=== PATIENT | female | born 1945 | race Asian ===

== ENCOUNTER 2021-08-04 06:31 | Emergency (ER) | payer MEDICARE, OTHER ==
[2021-08-04] MEDS ORDERED: Aspirin 81 MG Tab.Chew PO ONE (06:55)
[2021-08-04] MEDS: Sodium Chloride 0.9% 10 ML Syringe FLUSH PRN ×2 (07:10→08:57)
[2021-08-04] MEDS ORDERED: Iopamidol 755 Mg/ML 100 ML Bottle IVPUSH ONE (08:29)
[2021-08-04] MEDS ORDERED: Sodium Chloride 0.9% 10 ML Syringe FLUSH ONE (08:29)
[2021-08-04] MEDS ORDERED: Sodium Chloride 0.9% 100 ML IV SCH (08:30)
[2021-08-04 10:15] VITALS: BP 151/92; PULSE 64
== END 2021-08-04 10:15 | disposition home or self-care (01) ==
LOC: JD.ED 06:31
DX: R07.89 Other chest pain (principal); E87.6 Hypokalemia; J44.9 Chronic obstructive pulmonary disease, unspecified
CPT/HCPCS: 36415; 71045; 71275; 80053; 84484; 85025; 85379; 93005; 99285; A9270; J3490; Q9967; 93010; 99284

== ENCOUNTER 2021-09-13 07:52 | Inpatient (IN) | payer MEDICARE, OTHER ==
[2021-09-13] MEDS ORDERED: Sodium Chloride 0.9% 1,000 ML IV STA (08:21)
[2021-09-13] MEDS ORDERED: Ondansetron 4 MG/2 ML SDV IVPUSH ONE ×2 (08:21→12:52)
[2021-09-13] MEDS ORDERED: HYDROmorphone 0.5 MG/0.5 ML Syringe IVPUSH ONE ×5 (08:22→14:26)
[2021-09-13] MEDS: Sodium Chloride 0.9% 10 ML Syringe FLUSH PRN ×2 (08:38→10:08)
[2021-09-13 09:06] LABS: ESTIMATED GFR > 60 mL/min (>60)
[2021-09-13] MEDS ORDERED: Iopamidol 612 MG/ML 100 ML Bottle IVPUSH ONE (09:48)
[2021-09-13] MEDS ORDERED: Metoclopramide 10 MG/2 ML SDV IVPUSH ONE (10:26)
[2021-09-13] MEDS ORDERED: Ondansetron 4 MG/2 ML SDV IVPUSH PRN (16:46)
[2021-09-13] MEDS ORDERED: Formoterol/Mometasone 200-5 MCG 8.8 GM Inhaler IH PRN (16:48)
[2021-09-13] MEDS ORDERED: Pantoprazole 40 MG Vial ONE (16:49)
[2021-09-13] MEDS ORDERED: Ondansetron 4 MG/2 ML SDV IV PRN (16:49)
[2021-09-13] MEDS ORDERED: LORazepam 2 MG/ML SDV IV PRN (16:49)
[2021-09-13] MEDS ORDERED: OLOPATADINE HCL EYEBOTH SCH (17:00)
[2021-09-13] MEDS: HYDROmorphone 0.5 MG/0.5 ML Syringe IVPUSH PRN ×3 (17:05→22:27)
[2021-09-13] MEDS ORDERED: Albuterol 6.7 GM Inhaler INH PRN (17:13)
[2021-09-13] MEDS ORDERED: Pantoprazole 40 MG Vial IVPUSH ONE (17:15)
[2021-09-13] MEDS: Potassium Chloride 10 MEQ in Premix Bag 1 BAG IV SCH ×4 (17:43→22:31)
[2021-09-13] MEDS ORDERED: Sodium Chloride 0.9% 1,000 ML IV SCH (18:00)
[2021-09-13] MEDS ORDERED: Sodium Chloride 0.9% 1,000 ML ONE (18:00)
[2021-09-13] MEDS ORDERED: Albuterol/Ipratropium 3.0-0.5 MG/3 ML Neb Soln NEB PRN (18:37)
[2021-09-14] MEDS: Dextrose 5%-0.45% NaCl 1,000 ML IV SCH ×3 (00:03→16:40)
[2021-09-14] MEDS: HYDROmorphone 0.5 MG/0.5 ML Syringe IVPUSH PRN ×4 (01:12→17:50)
[2021-09-14 06:41] LABS: ESTIMATED GFR > 60 mL/min (>60)
[2021-09-14] MEDS: Enoxaparin 40 MG/0.4 ML Syringe SUBCUT SCH (08:34)
[2021-09-14] MEDS ORDERED: Acetaminophen 325 MG Tab PO PRN (14:31)
[2021-09-15] MEDS: Dextrose 5%-0.45% NaCl 1,000 ML IV SCH ×3 (01:03→17:36)
[2021-09-15 07:02] LABS: ESTIMATED GFR > 60 mL/min (>60)
[2021-09-15] MEDS: Enoxaparin 40 MG/0.4 ML Syringe SUBCUT SCH (08:13)
[2021-09-15] MEDS: Potassium Chloride 10 MEQ in Premix Bag 1 BAG IV SCH ×4 (13:39→19:24)
[2021-09-16] MEDS: Dextrose 5%-0.45% NaCl 1,000 ML IV SCH (01:50)
[2021-09-16 07:27] LABS: ESTIMATED GFR > 60 mL/min (>60)
[2021-09-16] MEDS: Potassium Chloride 10 MEQ in Premix Bag 1 BAG IV SCH ×4 (09:32→14:02)
[2021-09-16] MEDS: Enoxaparin 40 MG/0.4 ML Syringe SUBCUT SCH (09:34)
[2021-09-16] MEDS ORDERED: Sodium Chloride 0.9% 250 ML IV SCH (12:30)
[2021-09-16 16:07] VITALS: BP 128/88; PULSE 72
== END 2021-09-16 15:39 | disposition home or self-care (01) | DRG 389 ==
LOC: JD.ED 07:52 → JD.MS 14:40
PROVIDERS: ADMIT Pediatrics; ATTEND Pediatrics
DX: K56.609 Unspecified intestinal obstruction, unspecified as to partial versus complete obstruction (principal); R18.8 Other ascites; J44.9 Chronic obstructive pulmonary disease, unspecified; K76.0 Fatty (change of) liver, not elsewhere classified; K21.9 Gastro-esophageal reflux disease without esophagitis; E87.6 Hypokalemia; Z20.822 Contact with and (suspected) exposure to COVID-19; Z79.899 Other long term (current) drug therapy; Z87.19 Personal history of other diseases of the digestive system; Z90.49 Acquired absence of other specified parts of digestive tract; Z98.42 Cataract extraction status, left eye; Z98.41 Cataract extraction status, right eye; Z90.710 Acquired absence of both cervix and uterus; Z86.16 Personal history of COVID-19; Z87.891 Personal history of nicotine dependence
CPT/HCPCS: 36415; 71045; 74177; 80053; 81003; 83690; 85025; 86140; 96361; 96374; 96375; 96376; 99285; J1170 ×4; J2405 ×2; J2765; J3490 ×2; J7030; Q9967; U0002; 74018; 74018-26; 74019; 74019-26; 83735; 94761; 97161-GP; A9270-GY; C9113; J1650; J3480; J7042; J7050

== ENCOUNTER 2022-03-03 08:33 | Emergency (ER) | payer MEDICARE, OTHER ==
[2022-03-03] MEDS ORDERED: Sodium Chloride 0.9% 10 ML Syringe FLUSH PRN (09:28)
[2022-03-03] MEDS ORDERED: Ondansetron 4 MG/2 ML SDV IVPUSH ONE (09:28)
[2022-03-03 10:03] LABS: ESTIMATED GFR 98 mL/min (>60)
[2022-03-03] MEDS ORDERED: Acetaminophen 325 MG Tab PO ONE (11:43)
[2022-03-03 12:31] VITALS: BP 115/65; PULSE 74
== END 2022-03-03 12:30 | disposition home or self-care (01) ==
LOC: JD.ED 08:33
DX: R42 Dizziness and giddiness (principal); R11.2 Nausea with vomiting, unspecified; J44.9 Chronic obstructive pulmonary disease, unspecified; Z87.891 Personal history of nicotine dependence; Z79.899 Other long term (current) drug therapy
CPT/HCPCS: 36415; 70450; 80053; 80179; 83735; 84484; 85025; 86140; 93005; 96374; 99284; A9270; J2405; J3490

== ENCOUNTER 2022-07-13 06:57 | Day surgery (SDC) | payer MEDICARE, OTHER ==
[~2022-07-13 06:57] MED LIST: Lactated Ringers 1,000 ML IV SCH; Lidocaine 1%/Sod Bicarbonate in NS 8.4% 1 ML Syringe IDERM PRN; Morphine 8 MG, EPINEPHrine 0.3 MG, Cefuroxime 750 MG, Ketorolac 30 MG, Sodium Chloride ... PRN; Sodium Chloride 0.9% 10 ML Syringe FLUSH PRN; Sodium Chloride 0.9% 10 ML Syringe FLUSH SCH
[2022-07-13] MEDS ORDERED: Vancomycin 1 GM SDV ONE (07:08)
[2022-07-13] MEDS ORDERED: Tranexamic Acid 1,000 MG/10 ML Vial ONE (07:08)
[2022-07-13] MEDS ORDERED: Midazolam 1 MG/ML 2 ML SDV ONE (07:24)
[2022-07-13] MEDS ORDERED: fentaNYL 100 MCG/2 ML SDV ONE (07:24)
[2022-07-13] MEDS ORDERED: Propofol 200 MG/20 ML SDV ONE ×2 (07:28)
[2022-07-13] MEDS ORDERED: Lidocaine 1% 5 ML VIAL ONE (07:51)
[2022-07-13] MEDS ORDERED: Phenylephrine HCl In 0.9% NaCl 1 MG/10 ML Vial ONE (07:55)
[2022-07-13] MEDS ORDERED: ceFAZolin 2 GM Vial ONE (07:56)
[2022-07-13] MEDS ORDERED: Ropivacaine 0.5% 5 MG/ML 30 ML SDV ONE (08:20)
[2022-07-13] MEDS ORDERED: Dexamethasone 4 MG/ML 5 ML MDV ONE (08:38)
[2022-07-13] MEDS ORDERED: Dexmedetomidine 200 MCG/2 ML SDV ONE (08:38)
[2022-07-13] MEDS ORDERED: EPINEPHrine 1 MG/ML SDV ONE (09:26)
[2022-07-13] MEDS ORDERED: Acetaminophen/HYDROcodone 325-5 MG Tab PO PRN (10:06)
[2022-07-13 13:53] VITALS: BP 130/68; PULSE 68
== END 2022-07-13 12:20 | disposition home or self-care (01) ==
LOC: JD.SDS 06:57
PROVIDERS: ATTEND Orthopaedic Surgery
DX: M17.11 Unilateral primary osteoarthritis, right knee (principal); G89.29 Other chronic pain; M81.0 Age-related osteoporosis without current pathological fracture; J44.9 Chronic obstructive pulmonary disease, unspecified; G43.909 Migraine, unspecified, not intractable, without status migrainosus; E78.5 Hyperlipidemia, unspecified; Z90.49 Acquired absence of other specified parts of digestive tract; Z90.710 Acquired absence of both cervix and uterus; Z87.891 Personal history of nicotine dependence; Z79.899 Other long term (current) drug therapy
CPT/HCPCS: 0055T; 27447; 64447; 73560; 97116; 97161; C1713; C1776; J0171; J0690; J0697; J1100; J1885; J2250; J2270; J2704; J2795; J3010; J3370; J7120; 01402; J3490

== ENCOUNTER 2023-05-15 22:27 | Emergency (ER) | payer MEDICARE, OTHER ==
[2023-05-15 22:40] VITALS: BP 154/83; PULSE 81
[2023-05-15 23:06] LABS: APPEARANCE,URINE CLEAR (Clear); BILIRUBIN,URINE NEGATIVE (Negative); COLOR,URINE YELLOW (Yellow); GLUCOSE,URINE NEGATIVE (Negative); KETONES,URINE 2+ (Negative); LEUKOCYTE ESTERASE,URINE NEGATIVE (Negative); NITRITE,URINE NEGATIVE (Negative); OCCULT BLOOD,URINE NEGATIVE (Negative); PROTEIN,URINE TRACE (Negative); UROBILINOGEN,URINE 0.2 (0.2-1.0)
[2023-05-15 23:25] LABS: BACTERIA,URINE FEW /hpf (FEW); MUCUS,URINE MANY /hpf (FEW); RBC,URINE 0-5 /hpf (0-5); SQUAMOUS EPITHELIAL CELLS,UR 0-5 /hpf (0-5); WBC,URINE 0-5 /hpf (0-5)
[2023-05-15] MEDS: Dicyclomine 10 MG Cap PO STA (23:33)
[2023-05-15] MEDS: Ondansetron 4 MG Tab.DIS PO ONE (23:53)
[2023-05-15] MEDS: Magnesium Citrate Solution 296 ML Bottle PO ONE (23:53)
== END 2023-05-15 23:55 | disposition home or self-care (01) ==
LOC: JD.ED 22:27
DX: K59.01 Slow transit constipation (principal); R10.32 Left lower quadrant pain; I10 Essential (primary) hypertension; J44.9 Chronic obstructive pulmonary disease, unspecified; Z86.16 Personal history of COVID-19; Z79.82 Long term (current) use of aspirin; Z79.899 Other long term (current) drug therapy
CPT/HCPCS: 74018; 81001; 99284; A9270; 99283

== ENCOUNTER 2023-05-16 15:19 | Inpatient (IN) | payer MEDICARE, OTHER ==
[2023-05-16] MEDS: Sodium Chloride 0.9% 1,000 ML IV STA (16:22)
[2023-05-16] MEDS: HYDROmorphone 0.5 MG/0.5 ML Syringe IVPUSH ONE ×2 (16:22→17:59)
[2023-05-16] MEDS: Ondansetron 4 MG/2 ML SDV IVPUSH ONE (16:22)
[2023-05-16] MEDS: Sodium Chloride 0.9% 10 ML Syringe FLUSH PRN (16:22)
[2023-05-16 16:33] LABS: BASOPHILS ABSOLUTE AUTO 0.1 K/mm3 (0.0-0.2); BASOPHILS PERCENT AUTO 0.5 % (0.0-1.0); EOSINOPHILS PERCENT AUTO 0.2 % (0.0-6.0); HEMATOCRIT 46.9 % (37.0-47.0); HEMOGLOBIN 14.7 gm/dl (12.0-16.0); IMMATURE GRAN ABSOLUTE AUTO 0.03 K/mm3 (0.00-0.05); IMMATURE GRAN PERCENT AUTO 0.3 % (0.0-0.4); LYMPHOCYTES ABSOLUTE AUTO 1.4 K/mm3 (1.0-4.8); LYMPHOCYTES PERCENT AUTO 13.2 % (24.0-44.0); MEAN CORPUSCULAR HEMOGLOBIN 26.2 pg (28.0-32.0); MEAN CORPUSCULAR HGB CONC 31.3 g/dl (32.0-36.0); MEAN CORPUSCULAR VOLUME 83.6 fl (83.0-99.0); MONOCYTES ABSOLUTE AUTO 0.5 K/mm3 (0.0-0.8); MONOCYTES PERCENT AUTO 4.7 % (0.0-8.0); NEUTROPHILS ABSOLUTE AUTO 8.4 K/mm3 (1.8-7.7); NEUTROPHILS PERCENT AUTO 81.1 % (41.0-71.0); PLATELET COUNT,PLT 435 K/mm3 (150-400); RED BLOOD CELL COUNT 5.61 M/mm3 (4.10-5.30)
[2023-05-16 17:03] LABS: A/G RATIO 0.8 (1-2); ALANINE AMINOTRANSFERASE,ALT 14 U/L (14-59); ALBUMIN 3.4 g/dl (3.4-5.0); ALKALINE PHOSPHATASE 157 U/L (46-116); ANION GAP 12.6 (5-15); ASPARTATE AMNIOTRANSFERASE,AST 18 U/L (15-37); BILIRUBIN TOTAL 0.4 mg/dL (0.2-1.0); BLOOD UREA NITROGEN,BUN 9 mg/dL (7-18); C-REACTIVE PROTEIN <0.2 mg/dL (<1.0); CALCIUM 9.4 mg/dL (8.5-10.1); CARBON DIOXIDE,CO2 32 mEq/L (21-32); CHLORIDE,CL 100 mEq/L (98-107); CREATININE 0.6 mg/dL (0.55-1.02); EST CRCL DRUG DOSING (CG) 56.73 mL/min; ESTIMATED GFR 94 mL/min (>60); GLUCOSE RANDOM 127 mg/dL (70-99); LIPASE 23 U/L (16-77); POTASSIUM,K 3.6 mEq/L (3.5-5.1); PROTEIN TOTAL,TP 7.8 g/dl (6.4-8.2); SODIUM,NA 141 mEq/L (136-145)
[2023-05-16] MEDS: Diatrizoate Meglumine/Diatrizoate Sodium 37% 120 ML Bottle PO ONE (17:55)
[2023-05-16] MEDS: Iopamidol 612 MG/ML 100 ML Bottle IVPUSH ONE (17:56)
[2023-05-16] MEDS: Benzocaine 20% Topical Spray UD MUCMEM ONE (19:30)
[2023-05-16 20:12] LABS: APPEARANCE,URINE CLEAR (Clear); BILIRUBIN,URINE NEGATIVE (Negative); COLOR,URINE YELLOW (Yellow); GLUCOSE,URINE NEGATIVE (Negative); KETONES,URINE 2+ (Negative); LEUKOCYTE ESTERASE,URINE NEGATIVE (Negative); NITRITE,URINE NEGATIVE (Negative); OCCULT BLOOD,URINE NEGATIVE (Negative); PROTEIN,URINE NEGATIVE (Negative); UROBILINOGEN,URINE 0.2 (0.2-1.0)
[2023-05-16] MEDS ORDERED: Ondansetron 4 MG/2 ML SDV IVPUSH PRN (20:17)
[2023-05-16] MEDS ORDERED: HYDROmorphone 0.5 MG/0.5 ML Syringe IVPUSH PRN (20:17)
[2023-05-16 20:18] LABS: BACTERIA,URINE FEW /hpf (FEW); MUCUS,URINE FEW /hpf (FEW); RBC,URINE 0-5 /hpf (0-5); SQUAMOUS EPITHELIAL CELLS,UR 0-5 /hpf (0-5); WBC,URINE 0-5 /hpf (0-5)
[2023-05-17 05:32] LABS: BASOPHILS PERCENT AUTO 0.4 % (0.0-1.0); EOSINOPHILS ABSOLUTE AUTO 0.1 K/mm3 (0.0-0.4); EOSINOPHILS PERCENT AUTO 1.3 % (0.0-6.0); HEMATOCRIT 39.3 % (37.0-47.0); IMMATURE GRAN ABSOLUTE AUTO 0.03 K/mm3 (0.00-0.05); IMMATURE GRAN PERCENT AUTO 0.3 % (0.0-0.4); LYMPHOCYTES ABSOLUTE AUTO 2.8 K/mm3 (1.0-4.8); LYMPHOCYTES PERCENT AUTO 30.5 % (24.0-44.0); MEAN CORPUSCULAR HEMOGLOBIN 26.2 pg (28.0-32.0); MEAN CORPUSCULAR VOLUME 84.5 fl (83.0-99.0); MEAN PLATELET VOLUME 8.6 fl (9.4-12.3); MONOCYTES ABSOLUTE AUTO 0.8 K/mm3 (0.0-0.8); MONOCYTES PERCENT AUTO 8.5 % (0.0-8.0); NEUTROPHILS ABSOLUTE AUTO 5.3 K/mm3 (1.8-7.7); PLATELET COUNT,PLT 365 K/mm3 (150-400); RED BLOOD CELL COUNT 4.65 M/mm3 (4.10-5.30); WHITE BLOOD CELL COUNT,WBC 9.01 K/mm3 (3.9-11.3)
[2023-05-17 05:33] LABS: HEMOGLOBIN 12.2 gm/dl (12.0-16.0)
[2023-05-17 05:44] LABS: A/G RATIO 0.8 (1-2); ALBUMIN 2.7 g/dl (3.4-5.0); ANION GAP 11.5 (5-15); BILIRUBIN TOTAL 0.4 mg/dL (0.2-1.0); CALCIUM 8.1 mg/dL (8.5-10.1); CREATININE 0.5 mg/dL (0.55-1.02); EST CRCL DRUG DOSING (CG) 68.08 mL/min; POTASSIUM,K 3.5 mEq/L (3.5-5.1); PROTEIN TOTAL,TP 6.1 g/dl (6.4-8.2)
[2023-05-17] MEDS: Acetaminophen 325 MG Tab PO ONE (10:29)
[2023-05-17] MEDS ORDERED: Sodium Chloride 0.9% 1,000 ML IV SCH (18:45)
[2023-05-17] MEDS ORDERED: HYDROmorphone 0.5 MG/0.5 ML Syringe IVPUSH PRN (18:59)
[2023-05-17] MEDS ORDERED: Ondansetron 4 MG/2 ML SDV IV PRN (18:59)
[2023-05-17] MEDS ORDERED: oxyCODONE 5 MG Tab PO PRN (18:59)
[2023-05-17] MEDS ORDERED: Albuterol 0.083% 2.5 MG/3 ML Neb Soln INH PRN (19:24)
[2023-05-17] MEDS: Heparin Sodium 5,000 Units/ML Vial SUBCUT SCH (20:15)
[2023-05-17] MEDS: Pantoprazole 40 MG Vial IVPUSH SCH (20:15)
[2023-05-17] MEDS: Acetaminophen 325 MG Tab PO PRN (20:16)
[2023-05-17] MEDS: NS + KCl 20mEq/L 1,000 ML IV SCH (20:16)
[2023-05-18] MEDS: Pantoprazole 40 MG Tab.CR PO SCH (05:03)
[2023-05-18 10:01] LABS: A/G RATIO 0.8 (1-2); ALBUMIN 2.8 g/dl (3.4-5.0); ANION GAP 15.7 (5-15); BILIRUBIN TOTAL 0.6 mg/dL (0.2-1.0); CALCIUM 7.7 mg/dL (8.5-10.1); CREATININE 0.5 mg/dL (0.55-1.02); EST CRCL DRUG DOSING (CG) 67.52 mL/min; POTASSIUM,K 3.7 mEq/L (3.5-5.1); PROTEIN TOTAL,TP 6.5 g/dl (6.4-8.2)
[2023-05-18] MEDS: Fluticasone NASAL Spray 16 GM Bottle NASBOTH SCH (10:08)
[2023-05-18 10:09] LABS: HEMOGLOBIN 12.6 gm/dl (12.0-16.0); MEAN CORPUSCULAR HEMOGLOBIN 26.5 pg (28.0-32.0); MEAN CORPUSCULAR VOLUME 86.3 fl (83.0-99.0); RED BLOOD CELL COUNT 4.75 M/mm3 (4.10-5.30); WHITE BLOOD CELL COUNT,WBC 6.14 K/mm3 (3.9-11.3)
[2023-05-18 10:10] LABS: BASOPHILS PERCENT AUTO 0.7 % (0.0-1.0); EOSINOPHILS ABSOLUTE AUTO 0.1 K/mm3 (0.0-0.4); EOSINOPHILS PERCENT AUTO 2.1 % (0.0-6.0); IMMATURE GRAN ABSOLUTE AUTO 0.01 K/mm3 (0.00-0.05); IMMATURE GRAN PERCENT AUTO 0.2 % (0.0-0.4); LYMPHOCYTES ABSOLUTE AUTO 2.4 K/mm3 (1.0-4.8); LYMPHOCYTES PERCENT AUTO 39.4 % (24.0-44.0); MEAN CORPUSCULAR HGB CONC 30.7 g/dl (32.0-36.0); MEAN PLATELET VOLUME 9.8 fl (9.4-12.3); MONOCYTES ABSOLUTE AUTO 0.5 K/mm3 (0.0-0.8); MONOCYTES PERCENT AUTO 7.3 % (0.0-8.0); NEUTROPHILS ABSOLUTE AUTO 3.1 K/mm3 (1.8-7.7); NEUTROPHILS PERCENT AUTO 50.3 % (41.0-71.0); PLATELET COUNT,PLT 329 K/mm3 (150-400)
[2023-05-18 11:20] VITALS: BP 141/72; PULSE 82
== END 2023-05-18 11:44 | disposition home or self-care (01) | DRG 390 ==
LOC: JD.ED 15:19 → JD.MS 05-17 16:32
PROVIDERS: ADMIT Internal Medicine; ATTEND Internal Medicine
PROC: 0D9670Z Drainage of Stomach with Drainage Device, Via Natural or Artificial Opening (ICD-10-PCS; principal; 2023-05-17)
DX: K56.609 Unspecified intestinal obstruction, unspecified as to partial versus complete obstruction (principal); I10 Essential (primary) hypertension; J44.9 Chronic obstructive pulmonary disease, unspecified; M54.2 Cervicalgia; G89.29 Other chronic pain; J45.20 Mild intermittent asthma, uncomplicated; J44.89 Other specified chronic obstructive pulmonary disease; E78.5 Hyperlipidemia, unspecified; Z79.899 Other long term (current) drug therapy; Z79.51 Long term (current) use of inhaled steroids; Z86.16 Personal history of COVID-19; Z90.49 Acquired absence of other specified parts of digestive tract
CPT/HCPCS: 36415; 43752; 71045; 71045-26; 74018; 74018-26; 74177; 74177-26; 80053; 81001; 82947; 83690; 83735; 85025; 86140; 96361; 96374; 96375; 96376; 99285; 99285-25; A9270-GY; C9113; J1170; J1644; J2405; J3480; J3490; J7030; Q9963; Q9967

== ENCOUNTER 2024-08-30 00:51 | Emergency (ER) | payer MEDICARE, OTHER ==
[2024-08-30] MEDS ORDERED: Sodium Chloride 0.9% 10 ML Syringe FLUSH PRN (02:02)
[2024-08-30 02:12] LABS: BASOPHILS ABSOLUTE AUTO 0.1 K/mm3 (0.0-0.2); BASOPHILS PERCENT AUTO 0.6 % (0.0-1.0); EOSINOPHILS ABSOLUTE AUTO 0.8 K/mm3 (0.0-0.4); HEMATOCRIT 41.9 % (37.0-47.0); HEMOGLOBIN 12.9 gm/dl (12.0-16.0); IMMATURE GRAN PERCENT AUTO 0.8 % (0.0-0.4); LYMPHOCYTES ABSOLUTE AUTO 2.5 K/mm3 (1.0-4.8); LYMPHOCYTES PERCENT AUTO 21.2 % (24.0-44.0); MEAN CORPUSCULAR HEMOGLOBIN 26.3 pg (28.0-32.0); MEAN CORPUSCULAR HGB CONC 30.8 g/dl (32.0-36.0); MEAN CORPUSCULAR VOLUME 85.5 fl (83.0-99.0); MEAN PLATELET VOLUME 9.7 fl (9.4-12.3); MONOCYTES ABSOLUTE AUTO 0.3 K/mm3 (0.0-0.8); MONOCYTES PERCENT AUTO 2.4 % (0.0-8.0); NEUTROPHILS ABSOLUTE AUTO 8.1 K/mm3 (1.8-7.7); PLATELET COUNT,PLT 276 K/mm3 (150-400); WHITE BLOOD CELL COUNT,WBC 11.91 K/mm3 (3.9-11.3)
[2024-08-30] MEDS: Sodium Chloride 0.9% 500 ML IV ONE (02:17)
[2024-08-30] MEDS: methylPREDNISolone Sodium Succinate 125 MG/2 ML SDV IVPUSH ONE (02:17)
[2024-08-30] MEDS: Albuterol/Ipratropium 3.0-0.5 MG/3 ML Neb Soln NEB SCH (02:22)
[2024-08-30 02:37] LABS: A/G RATIO 0.9 (1-2); ALBUMIN 3.4 g/dl (3.4-5.0); ANION GAP 13.7 (5-15); BILIRUBIN TOTAL 0.4 mg/dL (0.2-1.0); CALCIUM 9.5 mg/dL (8.5-10.1); EST CRCL DRUG DOSING (CG) 34.38 mL/min; MAGNESIUM 1.8 mg/dL (1.8-2.4); POTASSIUM,K 2.7 mEq/L (3.5-5.1); PROTEIN TOTAL,TP 7.2 g/dl (6.4-8.2)
[2024-08-30] MEDS: Iopamidol 755 Mg/ML 100 ML Bottle IVPUSH ONE (03:20)
[2024-08-30 06:09] LABS: APPEARANCE,URINE CLEAR (Clear); BILIRUBIN,URINE NEGATIVE (Negative); COLOR,URINE DARK YELLOW (Yellow); GLUCOSE,URINE NEGATIVE (Negative); KETONES,URINE NEGATIVE (Negative); LEUKOCYTE ESTERASE,URINE NEGATIVE (Negative); NITRITE,URINE NEGATIVE (Negative); OCCULT BLOOD,URINE TRACE-INTACT (Negative); PROTEIN,URINE 1+ (Negative); UROBILINOGEN,URINE 0.2 (0.2-1.0)
[2024-08-30 06:18] LABS: BACTERIA,URINE FEW /hpf (FEW); HYALINE CASTS,URINE 0-5 /lpf (0-5); MUCUS,URINE MODERATE /hpf (FEW); SQUAMOUS EPITHELIAL CELLS,UR 0-5 /hpf (0-5); WBC,URINE 0-5 /hpf (0-5)
[2024-08-30] MEDS: Potassium Chloride 10 MEQ in Premix Bag 1 BAG IV SCH (07:53)
[2024-08-30] MEDS: Piperacillin/Tazobactam 4.5 GM in Sodium Chloride 0.9% 100 ML IV ONE (07:53)
[2024-08-30] MEDS: Sodium Chloride 0.9% 1,000 ML IV SCH (10:15)
[2024-08-30 10:55] LABS: A/G RATIO 0.8 (1-2); ALBUMIN 3.1 g/dl (3.4-5.0); ANION GAP 15.4 (5-15); BILIRUBIN TOTAL 0.3 mg/dL (0.2-1.0); BUN/CREATININE RATIO 11.1 (14-18); CALCIUM 9.4 mg/dL (8.5-10.1); CREATININE 0.9 mg/dL (0.55-1.02); EST CRCL DRUG DOSING (CG) 38.2 mL/min; POTASSIUM,K 3.4 mEq/L (3.5-5.1); PROTEIN TOTAL,TP 6.8 g/dl (6.4-8.2)
[2024-08-30 16:40] VITALS: BP 119/68; PULSE 71
== END 2024-08-30 14:20 | disposition home or self-care (01) ==
LOC: JD.ED 00:51
DX: J44.1 Chronic obstructive pulmonary disease with (acute) exacerbation (principal); K52.9 Noninfective gastroenteritis and colitis, unspecified; E87.6 Hypokalemia; I10 Essential (primary) hypertension; J44.89 Other specified chronic obstructive pulmonary disease; Z79.899 Other long term (current) drug therapy; Z79.51 Long term (current) use of inhaled steroids; Z86.16 Personal history of COVID-19; Z87.891 Personal history of nicotine dependence
CPT/HCPCS: 36415; 71275; 74177; 80053; 81001; 83690; 83735; 83880; 84484; 85025; 93005; 94640; 96361; 96365; 96367; 96375; 99285; A9270; C1758; J2543; J2919; J3480; J7030; Q9967; 93010; 99284

== ENCOUNTER 2024-12-30 17:47 | Emergency (ER) | payer MEDICARE, OTHER ==
[2024-12-30 18:25] VITALS: PULSE 78
[2024-12-30 18:37] LABS: BASOPHILS ABSOLUTE AUTO 0.1 K/mm3 (0.0-0.2); BASOPHILS PERCENT AUTO 1.2 % (0.0-1.0); EOSINOPHILS ABSOLUTE AUTO 0.2 K/mm3 (0.0-0.4); EOSINOPHILS PERCENT AUTO 3.6 % (0.0-6.0); IMMATURE GRAN ABSOLUTE AUTO 0.01 K/mm3 (0.00-0.05); IMMATURE GRAN PERCENT AUTO 0.2 % (0.0-0.4); LYMPHOCYTES ABSOLUTE AUTO 1.5 K/mm3 (1.0-4.8); LYMPHOCYTES PERCENT AUTO 22.7 % (24.0-44.0); MEAN PLATELET VOLUME 10.2 fl (9.4-12.3); MONOCYTES ABSOLUTE AUTO 0.4 K/mm3 (0.0-0.8); MONOCYTES PERCENT AUTO 5.3 % (0.0-8.0); NEUTROPHILS ABSOLUTE AUTO 4.4 K/mm3 (1.8-7.7); NEUTROPHILS PERCENT AUTO 67.0 % (41.0-71.0); NRBC ABSOLUTE 0.00 (0.00-0.02); NRBC PERCENT 0.0 % (0.0-0.2); PLATELET COUNT,PLT 288 K/mm3 (150-400); RED BLOOD CELL COUNT 5.04 M/mm3 (4.10-5.30); WHITE BLOOD CELL COUNT,WBC 6.62 K/mm3 (3.9-11.3)
[2024-12-30 18:57] LABS: A/G RATIO 0.9 (1-2); ASPARTATE AMNIOTRANSFERASE,AST 24.0 U/L (15-37); BILIRUBIN TOTAL 0.3 mg/dL (0.2-1.0); BLOOD UREA NITROGEN,BUN 11.0 mg/dL (7-18); CARBON DIOXIDE,CO2 30.0 mEq/L (21-32); CHLORIDE,CL 108.0 mEq/L (98-107); CREATININE 0.8 mg/dL (0.55-1.02); EST CRCL DRUG DOSING (CG) 42.3 mL/min; ESTIMATED GFR 76.0 mL/min (>60); GLUCOSE RANDOM 158.0 mg/dL (70-99); POTASSIUM,K 2.9 mEq/L (3.5-5.1); PROTEIN TOTAL,TP 7.0 g/dl (6.4-8.2); SODIUM,NA 144.0 mEq/L (136-145)
[2024-12-30 19:10] LABS: ALANINE AMINOTRANSFERASE,ALT 14.0 U/L (14-59)
[2024-12-30] MEDS ORDERED: Sodium Chloride 0.9% 10 ML Syringe FLUSH PRN (19:27)
[2024-12-30] MEDS: Iopamidol 612 MG/ML 100 ML Bottle IVPUSH ONE (19:39)
[2024-12-30] MEDS: Sodium Chloride 0.9% 10 ML Syringe FLUSH PRN (19:39)
[2024-12-30] MEDS: Potassium Chloride 20 MEQ Tab.ER PO ONE (22:58)
[2024-12-31 00:10] VITALS: BP 168/80
== END 2024-12-31 00:08 | disposition home or self-care (01) ==
LOC: JD.ED 17:47
DX: K59.00 Constipation, unspecified (principal); I10 Essential (primary) hypertension; J44.89 Other specified chronic obstructive pulmonary disease; Z86.16 Personal history of COVID-19; Z79.51 Long term (current) use of inhaled steroids; Z79.899 Other long term (current) drug therapy
CPT/HCPCS: 36415; 74177; 76705; 80053; 83690; 85025; 86140; 96365; 96366; 99284; A9270; J3480; J7030; Q9967